=== PATIENT | male | born 1955 | race Caucasian/White ===

== ENCOUNTER 2021-05-31 08:09 | Observation (INO) | payer OTHER, SELFPAY ==
[2021-05-31] VITALS (35 sets, daily range): BP systolic 134–162; BP diastolic 74–104; PULSE 72–109; RESP 12–32; TEMP 36.6; O2SAT 93–100; BMI 35.5
--- NOTE | ~2021-05-31 | MR_ITS ---
EXAMINATION: MR brain/brain stem wo/w con DATE: 06/01/2021 15:49 INDICATION: Left arm numbness. TECHNIQUE: Magnetic resonance imaging (MRI) of the brain and brainstem was performed without and with 20 mL MultiHance intravenous contrast. Sequences included sagittal and axial T1-weighted FSE, axial diffusion-weighted FS EPI, axial T2*-weighted GRE, axial T2-weighted FLAIR Propeller, and axial T2-we ighted Propeller. Postcontrast sequences included axial, sagittal, and coronal T1-weighted FSE. Appar ent diffusion coefficient (ADC) maps were created. COMPARISON: Head CT 05/31/2021 FINDINGS: There are punctate acute infarcts involving the left cerebellum and right frontal and parie angie lobes. There are old infarcts in the right frontal lobe. There are scattered areas of nonspecific increased T2-weighted signal intensity in the cerebral white matter. There is no intracranial hemorr antonia or abnormal mass lesion. The ventricles are normal in size. The paranasal sinuses are clear. The orbits are normal. There is a small right mastoid effusion. IMPRESSION: 1. 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 2. 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 3. Moderate nonspecific cerebral white matter disease, which likely represents chronic small vessel i schemic disease. Reviewed, dictated and finalized at location D. BOX ROUTE DRIVER IMPRESSION: 1. 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 2. 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 3. Moderate nonspecific cerebral white matter disease, which likely represents chronic small vessel ischemic disease.
--- NOTE | ~2021-05-31 | MR_ITS ---
EXAMINATION: MR cervical spine wo/w con DATE: 06/01/2021 15:49 INDICATION: Left arm numbness. TECHNIQUE: Magnetic resonance imaging (MRI) of the cervical spine was performed without and with 20 m L MultiHance intravenous contrast. Sequences included sagittal and axial T2-weighted FSE, sagittal T2 -weighted FS FSE, and sagittal and axial T1-weighted FSE. Postcontrast sequences included sagittal an d axial T1-weighted FS FSE. COMPARISON: None FINDINGS: There is 5 degrees dextrocurvature of cervical spine. Vertebral body heights are normal. Th ere is mildly decreased disc height at C5-C6. The spinal cord signal intensity is normal. The followi ng disc levels are specifically discussed: C2-C3: The disc does not extend beyond the endplate margin. There is no uncovertebral joint osteoarth ritis. There is severe right and mild left facet joint osteoarthritis. There is mild bilateral neural foraminal stenosis. There is no central canal stenosis. C3-C4: The disc does not extend beyond the endplate margin. There is mild left uncovertebral joint os teoarthritis. There is mild right and severe left facet joint osteoarthritis. There is moderate left neural foraminal stenosis. There is no central canal stenosis. C4-C5: There is a central protrusion. There is mild left uncovertebral joint osteoarthritis. There is severe right and moderate left facet joint osteoarthritis. There is mild right and moderate left melody ral foraminal stenosis. There is mild central canal stenosis. C5-C6: There is a central protrusion. There is moderate right and mild left uncovertebral joint osteo arthritis. There is mild bilateral facet joint osteoarthritis. There is mild bilateral neural foramin al stenosis. There is mild central canal stenosis. C6-C7: The disc is bulging. There is mild bilateral uncovertebral joint osteoarthritis. There is mode rate right and mild left facet joint osteoarthritis. There is mild bilateral neural foraminal stenosi s. There is mild central canal stenosis. C7-T1: The disc does not extend beyond the endplate margin. There is no uncovertebral joint osteoarth ritis. There is mild bilateral facet joint osteoarthritis. There is mild bilateral neural foraminal s tenosis. There is no central canal stenosis. IMPRESSION: 1. Moderate cervical spondylosis. Reviewed, dictated and finalized at location D. S ASSOC
--- NOTE | ~2021-05-31 | CT_ITS ---
EXAMINATION: CTA brain carotid EXAM DATE: 05/31/2021 11:37 INDICATION: Left upper extremity paresthesia. TECHNIQUE: Noncontrast head CT. Spiral CTA of the carotid arteries was performed with intravenous i njection 100 cc of Omnipaque 350. Axial, coronal, sagittal reformatted images reviewed. Additional r eformatted images created on dedicated 3-D workstation. NASCET comparable standard used to assess th e degree of arterial stenosis. Spiral CT angiogram cerebral arteries performed with the same intrave nous injection of contrast. Source images of the brain CTA transferred to dedicated workstation for 3 -D rotational image creation. Coronal, sagittal maximum intensity pixel images also reviewed. The d ose-length product (DLP) for this examination was 1920.81 mGy-cm. The exposure was tailored accordi ng to patient size, and iterative reconstruction (ASIR) was used as additional dose reduction techniq ue. There is no prior study for comparison. FINDINGS: There is mild to moderate right carotid bulb plaque with 40% stenosis, mild left carotid bu lb plaque without stenosis. The right vertebral artery is dominant. Minimal bilateral carotid siphon plaque without stenosis. There is no carotid or vertebral basilar arterial dissection or fibromuscul ar dysplasia. There are no cerebral artery aneurysms. There is symmetric cerebral artery arborization . The sagittal, transverse and sigmoid sinuses enhance normally, no venous sinus thrombosis. Internal cerebral veins also enhance normally. There is no acute intraparenchymal hemorrhage. No evidence of intraparenchymal brain mass lesion. N o evidence of acute infarction. There is mild periventricular and subcortical hypodensity, nonspecifi c but probably related to small vessel ischemic disease. There is no mass effect or midline shift. There is no obstructive hydrocephalus suspected. There are no extra-axial collections. Incidental Findings: Cervical spondylosis. IMPRESSION: 1. No acute carotid or intracranial findings. 2. Right carotid bulb 40% stenosis, left carotid bulb 0% stenosis. 3. Mild microangiopathy. Reviewed, dictated and finalized at location A. S SUPPORT MANAGER
--- NOTE | 2021-05-31 10:08 | ECG_ITS ---
Measurements Intervals [place] Rate: 85 P: 55 TN: 156 QRS: -34 QRSD: 118 T: 28 QT: 387 QTc: 462 Interpretive Statements SINUS RHYTHM VENTRICULAR PREMATURE COMPLEX LEFT AXIS DEVIATION DELAYED PRECORDIAL R/S TRANSITION VOLTAGE CRITERIA FOR LVH MINIMAL Q WAVES- HIGH LATERAL LEADS BORDERLINE T WAVE ABNORMALITY- INFERIOR LEADS BORDERLINE ECG Electronically Signed On 05-31-2021 13:25:54 RISK CONSULTANT by Johnny Greer D.O.
--- NOTE | 2021-05-31 10:10 | ED.NEUROSD ---
HPI - Neuro Symptoms/Deficit General Chief Complaint: Neuro Symptoms/Deficit Stated Complaint: Numbness and pain in L arm, Anxiety? Time Seen by Provider: 05/31/21 09:15 Source: patient Mode of arrival: ambulatory Limitations: no limitations History of Present Illness HPI Narrative: Patient is a 65-year-old male complaining of left facial numbness that started yesterday lasted for approximately 30 minutes to an hour and resolved on its own. This morning has recurred and now accompanied by left upper extremity numbness, started while he was working, lasted for approximately 30 minutes and now resolved. Patient denies any speech or visual disturbance, facial droop, focal weakness, unsteady gait, headache, dizziness, chest pain, shortness of breath, abdominal pain, nausea, vomiting, fever or chills. Related Data Home Medications Medication Instructions Recorded Confirmed amlodipine 10 mg PO DAILY 05/31/21 hydrochlorothiazide 25 mg PO DAILY 05/31/21 losartan 100 mg PO DAILY 05/31/21 Allergies Allergy/AdvReac Type Severity Reaction Status Date / Time No Known Allergies Allergy Verified 05/31/21 09:40 Review of Systems Review of Systems: All systems reviewed & are unremarkable except as noted in HPI and below Constitutional: Constitutional: Denies body ache(s), Denies chills, Denies excessive sweating, Denies fatigue, Denies fever(s), Denies headache(s), Denies lethargy, Denies malaise, Denies weakness and Denies weight loss Eyes: Eyes: Denies blurry vision, Denies change in vision and Denies loss of vision ENT: Denies dizziness, Denies ear discharge, Denies headache(s), Denies lip swelling, Denies epistaxis, Denies nasal congestion, Denies neck pain, Denies throat swelling and Denies tongue swelling Cardiovascular: Cardiovascular: Denies chest pain, Denies chest pain at rest, Denies chest pain with activity, Denies diaphoresis, Denies rapid heart rate, Denies edema, Denies irregular heart rhythm, Denies lightheadedness, Denies palpitations, Denies dyspnea and Denies dyspnea on exertion Respiratory: Respiratory: Denies chest congestion, Denies cough, Denies hemoptysis, Denies dyspnea and Denies dyspnea on exertion Gastrointestinal: Gastrointestinal: Denies abdominal pain, Denies melena, Denies hematochezia, Denies diarrhea, Denies nausea, Denies vomiting and Denies hematemesis Musculoskeletal: Musculoskeletal: Denies abnormal gait, Denies deformity, Denies joint swelling, Denies limited range of motion, Denies neck pain and Denies numbness Neurologic: Denies Abnormal speech present, Denies abnormal gait, Denies confusion, Denies dizziness, Denies headache(s), Denies focal weakness, Denies loss of vision, Denies Other visual disturbances and Denies weakness Psychiatric: Psychiatric: Denies confusion, Denies depression, Denies auditory hallucinations, Denies homicidal ideation and Denies suicidal ideation Endocrine: Endocrine: Denies cold intolerance, Denies excessive sweating, Denies fatigue, Denies heat intolerance and Denies palpitations Hematologic/Lymphatic: Hematologic/Lymphatic: Denies easy bleeding and Denies easy bruising Allergic/Immunologic: Allergic/Immunologic: Denies lip swelling, Denies throat swelling and Denies tongue swelling PMFSH Comments Past medical history hypertension Family history: Hypertension Social history: Non-smoker no EtOH or drug use Exam Const: General: cooperative, healthy appearing, comfortable, no acute distress, well developed, alert and awake; No confusion Orientation/consciousness: oriented to person, oriented to place, oriented to time, patient oriented x3 and No confusion Limitations: no limitations HENMT: Head: normal to inspection, normocephalic and atraumatic Ears: hearing grossly normal bilaterally, TM normal on the right and TM normal on the left General nose exam: Normal external nose present, Normal nares present and No nasal discharge present Face and sinus: normal facial
[2021-05-31 10:39] LABS: Basophils Absolute Auto 0.1 K/mm3 (0.0-0.1); Basophils Percent Auto 0.8 % (0.2-1.2); Eosinophils Absolute Auto 0.2 K/mm3 (0-0.3); Eosinophils Percent Auto 2.5 % (0-4.4); Hemoglobin 15.3 g/dL (14.0-18.0); Immature Granulocyte Absolute 0.02 K/mm3 (0.00-0.031); Immature Granulocyte Percent A 0.3 % (0-0.5); Lymphocytes Absolute Auto 1.56 K/mm3 (0.9-3.2); Lymphocytes Percent Auto 20.6 % (18.3-44.2); Mean Corpuscular HGB Conc 33.3 g/dl (32-36); Mean Corpuscular Hemoglobin 31.2 pg (26-34); Mean Corpuscular Volume 93.7 fl (80-100); Mean Platelet Volume 9.6 fl (7.4-10.4); Monocytes Absolute Auto 0.6 K/mm3 (0.1-0.6); Monocytes Percent Auto 7.7 % (2.6-8.5); Neutrophils Absolute Auto 5.2 K/mm3 (1.3-6.7); Neutrophils Percent Auto 68.1 % (45.5-73.1); Platelet Count Result 272 k/mm3 (150-375); Red Blood Count 4.91 M/mm3 (4.6-6.20); Red Cell Distribution Width 12.8 % (11.5-14.5); White Blood Count 7.6 K/mm3 (4.5-10.0)
[2021-05-31 10:49] LABS: INR 0.9; Partial Thromboplastin Time 22.3 SECONDS (22.3-36.8); Prothrombin Time 11.8 Seconds (11.1-14.7)
[2021-05-31 10:54] LABS: Anion Gap 4 mmol/L (8-16); Blood Urea Nitrogen 17 mg/dL (9-20); Calcium 9.5 mg/dL (8.4-10.2); Carbon Dioxide 31 mmol/L (22-30); Chloride 100 mmol/L (98-107); Estimated CRCL calculation 85 ml/min; Estimated Glomerular Filt Rate > 60; Glucose 105 mg/dL (65-110); Potassium 3.6 mmol/L (3.4-5.0); Sodium 135 mmol/L (137-145)
[2021-05-31 11:02] LABS: Troponin I < 0.012 ng/mL (0.000-0.034)
[2021-05-31] MEDS: ASPIRIN 81 MG ENTERIC TABLET PO (14:28)
[2021-05-31] MEDS: LACTATED RINGERS 1,000 ML 125 ML IV CONT (14:28)
[2021-05-31] MEDS: CLOPIDOGREL BISULFATE 75 MG TABLET PO (14:28)
--- NOTE | 2021-05-31 15:22 | ECHO_ITS ---
Patient Info Name: Octavio Keenan Age: 65 years : 1955 Gender: Male Ht: 71 in Wt: 180 lbs BSA: 2.03 m2 HR: 78 bpm BP: 144 / 84 mmHg Heart Rhythm: Sinus Rhythm Technical Quality: Fair Exam Date: 05/31/2021 4:54 PM Exam Location: [facility] Patient Status: Inpatient Admit Date: 05/31/2021 Staff Ordering Physician: Leonora Sabillon PA-C Associate Business Analyst: Madelaine Goff RDCS Attending Provider: Noam Garcia MD Referring Physician: Ramandeep GONZALES; Exam Type: CA echo doppler color flow Study Info Indications - HTN, TRANSIENT NEUROLOGICAL SYMPTOMS Complete two-dimensional, color flow and Doppler transthoracic echocardiogram is performed. Summary 1. Complete two-dimensional, color flow and Doppler transthoracic echocardiogram is performed. 2. Left ventricular chamber dimension is normal. 3. Left ventricular systolic function is normal, estimated at 55-60%. 4. There is mildly increased left ventricular wall thickness. 5. The left ventricular diastolic function is grade I diastolic dysfunction. 6. Cannot exclude wall motion abnormalities given limited visualization of the endocardium. 7. There is mild tricuspid valve regurgitation. 8. There is mild pulmonic regurgitation. Left Ventricle Left ventricular chamber dimension is normal. Left ventricular systolic function is normal, estimated at 55-60%. There is mildly increased left ventricular wall thickness. The left ventricular diastolic function is grade I diastolic dysfunction. Cannot exclude wall motion abnormalities given limited visualization of the endocardium. Right Ventricle Right ventricular chamber dimension is normal. Right ventricular systolic function is normal. Left Atria Left atrial chamber dimension is normal. Right Atria Right atrial chamber dimension is normal. Atrial Septum Intact interatrial septum visualized by color flow imaging. This is not a definitive study for analysis of shunting. Consider agitated saline study if shunting is a concern. Aortic Valve The aortic valve is trileaflet. There is mild aortic valve sclerosis. There is no aortic valve stenosis. There is trace aortic valve regurgitation. Pulmonic Valve The pulmonic valve is normal. There is no pulmonic valve stenosis. There is mild pulmonic regurgitation. Mitral Valve The mitral valve has normal leaflets. There is no mitral valve stenosis. There is trace mitral valve regurgitation. Tricuspid Valve The tricuspid valve leaflets are normal. There is no significant tricuspid valve stenosis. There is mild tricuspid valve regurgitation. No pulmonary hypertension, estimated pulmonary arterial systolic pressure is 20 mmHg. Pericardium/Pleural The pericardium appears normal. There is no pericardial effusion. Inferior Vena Cava Normal inferior vena cava with >50% collapse upon inspiration consistent with normal right atrial pressure, 10 mmHg. Aorta The aortic root size at the sinus of Valsalva is normal. Left Ventricular Outflow Tract Name Value Normal LVOT 2D LVOT Diameter 2.0 cm LVOT Doppler LVOT Peak Grad
--- NOTE | 2021-05-31 15:45 | PM.IMHP ---
H&P: HPI History of Present Illness Date/Time: 05/31/21 15:45 <Leonora Sabillon PA-C - Last Filed: 05/31/21 21:49> Chief Complaint: Left arm weakness. <Leonora Sabillon PA-C - Last Filed: 05/31/21 21:49> Narrative: This is a 65-year-old male with hypertension who presented to the emergency department earlier today via EMS for evaluation of left arm weakness. 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 Within approximately 15 minutes his symptoms resolved and he went about his day. In fact he was able to play golf with no issues. 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 His symptoms resolved within approximately 30 minutes and he has not had a recurrence since arrival to the hospital. CTA of the head and neck showed no acute findings but did note approximately 40% stenosis at the right carotid artery bulb. At the time my evaluation he has no complaints and denies vertigo, auditory and visual changes, current focal weakness, paresthesias, facial droop, dysarthria, and dysphagia. He also denies racing heart, palpitations, and history of cardiac dysrhythmia. Of note the patient had an MRI done of his left shoulder yesterday at [facility] for evaluation of the left arm numbness that he experienced yesterday morning. He has yet to receive those results. <Leonora Sabillon PA-C - Last Filed: 05/31/21 21:49> Review of Systems Review of Systems: 12 systems were reviewed. No fever, chills, or sweats. No recent cold or flu symptoms. He denies shoulder pain. No neck pain. No sick contacts. Except as document, other systems were reviewed and are negative. <Leonora Sabillon PA-C - Last Filed: 05/31/21 21:49> [facility] Past Medical History Medical History: Medical History Hypertension Stenosis of right carotid artery 40% stenosis of the right carotid bulb noted on CTA of the head and neck on 05/31/2021. <Leonora Sabillon PA-C - Last Filed: 05/31/21 21:49> Surgical History Surgical History: Surgical History No history of previous surgery <Leonora Sabillon PA-C - Last Filed: 05/31/21 21:49> Family History Family History: Family History Other Unknown family medical history <LEANDRA Mendoza Last Filed: 05/31/21 21:49> Social History Social History: Social History Social History: The patient lives in [place] with his . He has no biological children but does have stepchildren. Lifelong non-smoker. No alcohol or illicit substance abuse. He designates his Brooke Keenan is a surrogate decision-maker and he wishes to be a full code. <Leonora Sabillon PA-C - Last Filed: 05/31/21 21:49> Meds Home Medications and Allergies Home medications: Home Medications Medication Instructions Recorded Confirmed Type amlodipine 10 mg PO DAILY 05/31/21 05/31/21 History hydrochlorothiazide 25 mg PO DAILY 05/31/21 05/31/21 History losartan 100 mg PO DAILY 05/31/21 05/31/21 History <LEANDRA Mendoza Last Filed: 05/31/21 21:49> Allergies/Adverse reactions: Allergies Allergy/AdvReac Type Severity Reaction Status Date / Time No Known Allergies Allergy Verified 05/31/21 09:40 <LEANDRA Mendoza Last Filed: 05/31/21 21:49> Vital Signs Vital Signs - 24 hr 05/31/21 08:12 05/31/21 10:15 05/31/21 14:17 Temperature 97.8 F Pulse Rate 89 88 78 Respiratory Rate 14 16 16 Blood Pressure 162/93 H 157/93 H 144/84 H Pulse Oximetry 98 100 99 <Leonora Garza
--- NOTE | 2021-05-31 16:46 | ECHO_ITS ---
Patient Info Name: cOtavio Keenan Age: 65 years : 1955 Gender: Male Ht: 71 in Wt: 180 lbs BSA: 2.03 m2 HR: 78 bpm BP: 144 / 84 mmHg Heart Rhythm: Sinus Rhythm Technical Quality: Fair Exam Date: 05/31/2021 4:54 PM Exam Location: [facility] Pulmonary Patient Status: Inpatient Admit Date: 05/31/2021 Staff Ordering Physician: Leonora Sabillon PA-C Hogshead Filler: Madelaine Goff RDCS Attending Provider: Noam Garcia MD Referring Physician: Ramandeep GONZALES; Exam Type: CA echo doppler color flow Study Info Indications - HTN, TRANSIENT NEUROLOGICAL SYMPTOMS Complete two-dimensional, color flow and Doppler transthoracic echocardiogram is performed. Summary 1. Complete two-dimensional, color flow and Doppler transthoracic echocardiogram is performed. 2. Left ventricular chamber dimension is normal. 3. Left ventricular systolic function is normal, estimated at 55-60%. 4. There is mildly increased left ventricular wall thickness. 5. The left ventricular diastolic function is grade I diastolic dysfunction. 6. Cannot exclude wall motion abnormalities given limited visualization of the endocardium. 7. There is mild tricuspid valve regurgitation. 8. There is mild pulmonic regurgitation. Left Ventricle Left ventricular chamber dimension is normal. Left ventricular systolic function is normal, estimated at 55-60%. There is mildly increased left ventricular wall thickness. The left ventricular diastolic function is grade I diastolic dysfunction. Cannot exclude wall motion abnormalities given limited visualization of the endocardium. Right Ventricle Right ventricular chamber dimension is normal. Right ventricular systolic function is normal. Left Atria Left atrial chamber dimension is normal. Right Atria Right atrial chamber dimension is normal. Atrial Septum Intact interatrial septum visualized by color flow imaging. This is not a definitive study for analysis of shunting. Consider agitated saline study if shunting is a concern. Aortic Valve The aortic valve is trileaflet. There is mild aortic valve sclerosis. There is no aortic valve stenosis. There is trace aortic valve regurgitation. Pulmonic Valve The pulmonic valve is normal. There is no pulmonic valve stenosis. There is mild pulmonic regurgitation. Mitral Valve The mitral valve has normal leaflets. There is no mitral valve stenosis. There is trace mitral valve regurgitation. Tricuspid Valve The tricuspid valve leaflets are normal. There is no significant tricuspid valve stenosis. There is mild tricuspid valve regurgitation. No pulmonary hypertension, estimated pulmonary arterial systolic pressure is 20 mmHg. Pericardium/Pleural The pericardium appears normal. There is no pericardial effusion. Inferior Vena Cava Normal inferior vena cava with >50% collapse upon inspiration consistent with normal right atrial pressure, 10 mmHg. Aorta The aortic root size at the sinus of Valsalva is normal. Left Ventricular Outflow Tract Name Value Normal LVOT 2D LVOT Diameter 2.0 cm LVOT Doppler LVOT Peak Grad
--- NOTE | 2021-05-31 20:30 | ADMGEN ---
This patient, Octavio Keenan, was admitted to Medical Room 245-. Patient/family oriented to hospital policies and general routines including ID bracelet, bed and alarms, visiting hours, pain management, procedures, bathroom and other care routines, personal items, smoking policy, room service/diet, and visiting hours. Information on how to activate the Rapid Response Team has been discussed. Patient/Family are encouraged to report perceived risks to care and to ask questions if they do not understand what they are told or what they should do.
[2021-06-01] VITALS: PULSE 63
[2021-06-01 04:00] VITALS: PULSE 68
[2021-06-01 04:10] VITALS: BP 137/72; PULSE 67; RESP 18; TEMP 36.9; O2SAT 96
[2021-06-01 06:09] LABS: Alanine Aminotransferase 15 U/L (4-50); Albumin Level 3.7 g/dL (3.5-5.1); Alkaline Phosphatase 73 U/L (38-126); Anion Gap 3 mmol/L (8-16); Aspartate Amino Transferase 23 U/L (17-59); Bilirubin,Total 0.5 mg/dL (0.2-1.3); Blood Urea Nitrogen 16 mg/dL (9-20); Calcium 8.9 mg/dL (8.4-10.2); Carbon Dioxide 30 mmol/L (22-30); Chloride 101 mmol/L (98-107); Cholesterol 141 mg/dL (0-200); Estimated CRCL calculation 92 ml/min; Estimated Glomerular Filt Rate > 60; Glucose 104 mg/dL (65-110); HDL Direct 39 mg/dL; Magnesium 2.1 mg/dL (1.6-2.3); Potassium 3.2 mmol/L (3.4-5.0); Sodium 134 mmol/L (137-145); Triglycerides 85 mg/dL (<150)
[2021-06-01 06:20] LABS: LDL Cholesterol Direct 73 mg/dL
[2021-06-01 08:00] VITALS: PULSE 81
[2021-06-01] MEDS: LOSARTAN POTASSIUM 100 MG TABLET PO (08:43)
[2021-06-01] MEDS: hydroCHLOROthiazide 25 MG TABLET PO (08:43)
[2021-06-01] MEDS: amLODIPine BESYLATE 5 MG TABLET 10 MG PO (08:43)
[2021-06-01] MEDS: ASPIRIN 81 MG ENTERIC TABLET PO (11:02)
[2021-06-01] MEDS: ATORVASTATIN 40 MG TABLET PO (11:02)
[2021-06-01 12:00] VITALS: PULSE 81
--- NOTE | 2021-06-01 12:17 | WPDNEURCNPN ---
Assessment and Plan Additional Plan 1. TIA 2. Rule out the possibility of cervical myelopathy 3. 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 and noted he was having difficulties while using his left upper extremity on the steering wheel and within a short time his left upper extremity went numb and symptomatology resolved within the next 30 minutes initial CTA of the head and neck was negative except 40% stenosis at the right carotid artery bulb he has had MRI of the left shoulder done yesterday at [facility] for the left upper extremity numbness though he was not aware of the results, he has been taking amlodipine 10 mg daily hydrochlorothiazide 25 mg daily losartan 100 mg daily, and as mentioned before the CTA of the head and neck revealed only right carotid bulb 40/10 stenosis and left carotid bulb of 0% stenosis in addition to mild microangiopathy Review of Systems Review of Systems: All systems reviewed & are unremarkable except as noted in HPI and below PMFSH Past Medical History Medical History Hypertension Stenosis of right carotid artery 40% stenosis of the right carotid bulb noted on CTA of the head and neck on 05/31/2021. Surgical History Surgical History No history of previous surgery Family History Family History Other Unknown family medical history Social History Social History Social History: The patient lives in [place] with his . He has no biological children but does have stepchildren. Lifelong non-smoker. No alcohol or illicit substance abuse. He designates his Brooke Keenan is a surrogate decision-maker and he wishes to be a full code. Meds Home Medications and Allergies Home Medications Medication Instructions Recorded Confirmed Type amlodipine 10 mg PO DAILY 12/28/21 12/28/21 History hydrochlorothiazide 25 mg PO DAILY 05/31/21 05/31/21 History losartan 100 mg PO DAILY 05/31/21 05/31/21 History Allergies Allergy/AdvReac Type Severity Reaction Status Date / Time No Known Allergies Allergy Verified 05/31/21 09:40 Vital Signs Vital Signs - 24 hr 05/31/21 12:41 05/31/21 12:45 05/31/21 13:00 Temperature Pulse Rate 79 109 H 75 Respiratory Rate 21 H 17 18 Blood Pressure Pulse Oximetry 99 97 95 05/31/21 13:16 05/31/21 13:30 05/31/21 13:45 Temperature Pulse Rate 83 83 84 Respiratory Rate 14 13 18 Blood Pressure Pulse Oximetry 95 96 96 05/31/21 14:00 05/31/21 14:03 05/31/21 14:14 Temperature Pulse Rate 84 83 Respiratory Rate 32 H 17 18 Blood Pressure 140/104 H Pulse Oximetry 95 97 95 05/31/21 14:15 05/31/21 14:16 05/31/21 14:17 Temperature Pulse Rate 82 80 78 Respiratory Rate 15 25 H 16 Blood Pressure 144/84 H 144/84 H Pulse Oximetry 99 95 99 05/31/21 14:30 05/31/21 14:45 05/31/21 15:00 Temperature Pulse Rate 85 95 89 Respiratory Rate Blood Pressure Pulse Oximetry 05/31/21 15:15 05/31/21 15:33 05/31/21 15:45 Temperature Pulse Rate 99 82 76 Respiratory Rate Blood Pressure Pulse Oximetry 05/31/21 16:01 05/31/21 16:15 05/31/21 16:55 Temperature Pulse Rate 80 72 72 Respiratory Rate Blood Pressure Pulse Oximetry 05/31/21 17:40 05/31/21 17:45 05/31/21 21:11 Temperature 36.6 C Pulse Rate 78 77 73 Respirato
--- NOTE | 2021-06-01 12:56 | PM.DS ---
DS: Admitting Diagnosis Discharge Date 06/01/2021 Admitting Diagnosis TIA Hypertension DS: Discharge Diagnosis Discharge Diagnosis (1) Transient neurological symptoms: Code(s): R29.818 - Other symptoms and signs involving the nervous system Status: Acute Assessment and Plan: He was given aspirin 81 mg and clopidogrel 75 mg p.o. x1 in the emergency department. Atorvastatin 40 mg and aspirin 81 mg to start daily in a.m. Monitor on telemetry overnight. Brain MRI and echocardiogram have been ordered for further evaluation. (2) Hypertension: Code(s): I10 - Essential (primary) hypertension Status: Acute Assessment and Plan: Blood pressures were reviewed and they have been a bit high, likely related to anxiety. Continue antihypertensives and monitor blood pressures closely. Permissive hypertension will be allowed over the next 24 to 48 hours. (3) Stenosis of right carotid artery: Code(s): I65.21 - Occlusion and stenosis of right carotid artery Status: Acute Assessment and Plan: 40% stenosis of the right carotid bulb noted on head/neck CTA. Start atorvastatin. Needs to be monitored by vascular surgery. DS: Summary Hospital Course Reason for hospitalization: TIA Hospital Course: 65 years old male was admitted complains of having numbness and harm the left asymmetry. His echo was normal his workup for [employer] was normal except for mild stenosis of carotid artery. Today patient is feeling better so patient discharged home stable condition. Patient advised to follow with primary care, Cardiology and Urology outpatient next week. Potassium was replaced. Status at Discharge Cognitive/behavioral status at discharge: Stable Functional status at discharge: independent ambulation Overall status at discharge: patient is back to baseline Time Spent with Patient Time attestation: Total time spent providing and/or coordinating discharge services: Time spent: Less than 30 minutes Exam Narrative: General: Well-developed male sitting up in bed no distress. Weight: 50.5 kg. BMI: 35.5. HEENT: Normocephalic, atraumatic. PERRL, EOMI. Sclerae anicteric. Oral mucosa moist. Oropharynx clear. Neck: Supple. No obvious carotid bruits. Respiratory: Lungs are clear to auscultation bilaterally. Cardiovascular: Regular rate and rhythm with S1-S2. No murmur, rub, or gallop. Gastrointestinal: Abdomen is soft, nontender, and nondistended with positive bowel sounds. No organomegaly. Skin: Warm and dry. No rash or lesions on limited exam. Extremities: No cyanosis, clubbing, or edema. Radial and pedal pulses intact. Neurological: Alert and oriented x4. Cranial nerves 2-12 are grossly intact. Speech is clear. No facial asymmetry. No pronator drift. Normal [id number], rapid alternating movements, and [id number]. Strength 5/5 in upper and lower extremities. He is neurovascular intact throughout. Gait was not assessed. Psychiatric: Pleasant and cooperative with normal mood and affect. Judgment and insight intact. DS: Data Data Completed and Pending Labs on day of discharge: Labs from last 24 hours 06/01/21 06/01/21 06/01/21 05:18 05:18 05:18 Sodium 134 L Potassium 3.2 L Chloride 101 Carbon Dioxide 30 Anion Gap 3 L BUN 16 Creatinine 0.90 Estim Creat Clear Calc 92 Estimated GFR > 60 Glucose 104 Calcium 8.9 Magnesium 2.1 Total Bilirubin 0.5 AST 23 ALT 15 Alkaline Phosphatase 73 Total Protein 7.0 Albumin 3.7 Triglycerides 85 Cholesterol 141 LDL Cholesterol Direct 73 HDL Direct 39 Vitamin B12 305.0 TSH (Reflex) 4.530 Free T4 Pending Discharge Plan Discharge Attending physician on discharge: Bienvenido Escobar Consulting providers: Eduardo Almendarez Discharging Clinician: Bienvenido Escobar Patient Disposition: Home, Self-Care Activity: as tolerated Diet: heart healthy Patient Instructions:
[2021-06-01 13:53] VITALS: BP 143/71; PULSE 71; RESP 18; TEMP 36.5; O2SAT 94
[2021-06-01 14:15] LABS: Free T4 Free Thyroxine Reflex 1.12 ng/dL (0.78-2.19)
[2021-06-01] MEDS: POTASSIUM CHLORIDE 20 MEQ TABLET 40 MEQ PO (16:27)
[2021-06-01 17:35] LABS: Total Triiodothyronine (T3) 1.43 NG/ML (0.97-1.69)
== END 2021-06-01 17:54 | disposition home or self-care (01) ==
LOC: ANHED 13:39 → ANH2MED 06-01 09:03
PROVIDERS: Physician Assistant; Admitting Provider Internal Medicine; Emergency Provider Emergency Medicine; Visit Provider Internal Medicine
DX: R29.818 Other symptoms and signs involving the nervous system (principal); I10 Essential (primary) hypertension; R29.701 NIHSS score 1; I65.21 Occlusion and stenosis of right carotid artery
CPT/HCPCS: 36415; 70496; 70498; 70553; 72156; 80048; 80053; 80061; 82607; 83735; 84439; 84443; 84480; 84484; 85025; 85610; 85730; 93005; 93306; 96375; 99285; A9270; A9577; G0378; J7120; Q9967